=== PATIENT | male | born 1975 | race Caucasian/White ===

== ENCOUNTER 2024-01-31 08:50 | Emergency (ER) | payer MEDICAID ==
[~2024-01-31] VITALS: Ht 177.8 cm; Wt 72.6 kg
[~2024-01-31 08:50] MED LIST: ACCUPRIL; NAPROXEN
[2024-01-31 08:59] VITALS: O2SAT 98
[2024-01-31] MEDS: DEXAMETHASONE 10 MG/ML VIAL IM ONE (10:02)
[2024-01-31] MEDS: KETOROLAC 15MG/ML VIAL IM ONE (10:02)
[2024-01-31] MEDS ORDERED: FAMO-135 MT (10:24)
[2024-01-31 10:34] VITALS: BP 117/79; PULSE 84; RESP 18; TEMP 36.61404; O2SAT 98
== END 2024-01-31 10:37 | disposition home or self-care (01) ==
LOC: ER 08:50
DX: T78.40XA Allergy, unspecified, initial encounter (principal); I10 Essential (primary) hypertension; X58.XXXA Exposure to other specified factors, initial encounter; Z90.49 Acquired absence of other specified parts of digestive tract
CPT/HCPCS: 96372; 99284; J1100; J1885; Z7610